=== PATIENT | female | born 1965 | race Caucasian/White ===

== ENCOUNTER 2018-01-13 07:52 | Day surgery (SDC) | payer OTHER ==
[~2018-01-13] VITALS: Ht 170.2 cm; Wt 72.7 kg
[2018-01-13] VITALS (7 sets, daily range): BP systolic 114–150; BP diastolic 67–92; PULSE 68–80; TEMP 98.1
[2018-01-13] MEDS ORDERED: IMODIUM A-D2 MG PO (08:37)
== END 2018-01-13 11:11 | disposition home or self-care (01) ==
LOC: SDCO 07:52
DX: R19.4 Change in bowel habit (principal); Z85.3 Personal history of malignant neoplasm of breast
CPT/HCPCS: J2250; J3010; J7030

== ENCOUNTER → 2018-04-20 | Outpatient (CLI) | payer OTHER ==
[~2018-04-20] MED LIST: IMODIUM A-D2 MG PO
[2018-04-20 16:17] LABS: BASO # 0.1 (0.0-0.2); BASO % 0.9 % (0.0-2.0); EOS # 0.4 (0.0-0.7); EOS % 4.3 % (0-4.0); GRAN # 6.4 (1.4-6.5); GRAN % 67.8 % (42.2-75.2); HEMATOCRIT 40.6 % (37.0-47.0); HEMOGLOBIN 13.8 g/dl (12.5-16.0); LYMPH # 1.9 (1.2-3.4); LYMPH % 20.6 % (20.0-51.0); MEAN CELL VOLUME 95 fl (80.0-100.0); MEAN CORPUSCULAR HEMOGLOBIN 32 pg (27.0-31.0); MEAN CORPUSCULAR HGB CONC 34 g/dl (33.0-37.0); MONO # 0.6 (0.1-0.6); MONO % 6.1 % (1.7-9.3); PLATELET COUNT 280 K/mm3 (130-400); RED BLOOD COUNT 4.27 M/mm3 (4.10-5.30); REDCELL DISTRIBUTION WIDTH-CV 12.8 % (11.5-14.5)
[2018-04-20 16:22] LABS: CALCIUM 9.1 mg/dL (8.4-10.2); CREATININE, serum 0.53 mg/dL (0.52-1.25); POTASSIUM 4.4 mmol/L (3.4-5.0)
== END ==
LOC: COL.LAB 10:27
PROVIDERS: Family Medicine
DX: I10 Essential (primary) hypertension (principal); R55 Syncope and collapse

== ENCOUNTER 2020-01-24 07:28 | Day surgery (SDC) | payer OTHER ==
[~2020-01-24] VITALS: Ht 170.2 cm; Wt 69.0 kg
[2020-01-24 07:50] VITALS: BP 151/99; PULSE 67; TEMP 97.8
--- NOTE | 2020-01-24 07:54 | NUR ---
CHG scrub complete on operative site.
--- NOTE | 2020-01-24 09:36 | NUR ---
Patient to the restroom at this time. Voids and returns to room.
--- NOTE | 2020-01-24 09:44 | NUR ---
Patient to the OR at this time with JACKSON Joseph.
[2020-01-24] MEDS ORDERED: NORCO 325 MG-51 TAB PO (10:33)
[2020-01-24 11:20] VITALS: BP 122/98; PULSE 66; TEMP 99.2
--- NOTE | 2020-01-24 11:20 | NUR ---
Patient arrives to [facility] [place] [address] via cart, accompanied by DIE BARBER Juliane. She is lying in bed, alert and oriented. Her right knee has an ZAK wrap bandage covering the operative site. Her right knee is elevated, Ice pack is applied. Monitoring is applied -VSS and WNL on room air. She denies pain or nausea. She is offered and receives a muffin and juice to drink. DP and PT pulses are +2 palpable. RLE color is normal and she can feel/move her leg. Call light is within reach. Will continue to monitor.
[2020-01-24 11:35] VITALS: BP 139/76; PULSE 75
--- NOTE | 2020-01-24 11:35 | NUR ---
Patient has eaten her muffin and had some juice. She is tolerating PO well. She denies pain, nausea, or need. HOB is lowered and lights dimmed for comfort.
[2020-01-24 11:50] VITALS: BP 129/77; PULSE 71
--- NOTE | 2020-01-24 11:50 | NUR ---
Patient notices some mild tingling in the right foot. Her foot is pink, warm, pulses strong. She is able to move it without difficulty. Her dressing is not tight. Will monitor.
--- NOTE | 2020-01-24 11:50 | NUR ---
VSS and WNL on room air. Denies pain or nausea.
[2020-01-24 12:05] VITALS: BP 134/73; PULSE 68
[2020-01-24 12:30] VITALS: BP 124/72; PULSE 72
--- NOTE | 2020-01-24 13:15 | NUR ---
Patient has met discharge criteria. She ambulates to the restroom with use of crutches, voids, and returns to room. PIV is removed with catheter intact and hemostasis achieved. She changes to her clothing independently. Discharge instructions are discussed. She denies any questions and verbalizes understanding. She is aware of her follow-up appointment and PT instructions. She has her paper prescription for [place] to fill at her pharmacy of choice. She is escorted to the exit via wheelchair and discharged to home with ride in private vehicle at 1315.
== END 2020-01-24 13:15 | disposition home or self-care (01) ==
LOC: SDCO 07:28
DX: M23.203 Derangement of unspecified medial meniscus due to old tear or injury, right knee (principal); M22.41 Chondromalacia patellae, right knee; M17.11 Unilateral primary osteoarthritis, right knee; Z87.891 Personal history of nicotine dependence; Z80.3 Family history of malignant neoplasm of breast
CPT/HCPCS: J0690; J1100; J1885; J2405; J2704; J3010; J7120

== ENCOUNTER → 2022-01-16 | Outpatient (CLI) | payer OTHER ==
[~2022-01-16] MED LIST changes: +NORCO 325 MG-51 TAB PO
[2022-01-16 09:19] LABS: ALBUMIN 4.3 gm/dL (3.5-5.0); BILIRUBIN,TOTAL 0.6 mg/dL (0.2-1.2); CALCIUM 9.1 mg/dL (8.4-10.2); CREATININE, serum 0.83 mg/dL (0.57-1.11); TOTAL PROTEIN 7.7 gm/dL (6.2-8.1)
== END ==
LOC: COL.LAB 08:35
DX: R19.7 Diarrhea, unspecified (principal)

== ENCOUNTER → 2022-02-12 | Outpatient (CLI) | payer OTHER ==
[2022-02-12 08:00] LABS: BASO # 0.1 K/mm3 (0.0-0.2); BASO % 0.7 % (0.0-2.0); EOS # 0.3 K/mm3 (0.0-0.7); EOS % 3.7 % (0.0-4.0); GRAN % 55.5 % (42.2-75.2); HEMOGLOBIN 13.2 g/dl (12.5-16.0); LYMPH # 2.3 K/mm3 (1.2-3.4); LYMPH % 31.3 % (20.0-51.0); MEAN CELL VOLUME 91 fl (80.0-100.0); MEAN CORPUSCULAR HEMOGLOBIN 32 pg (27-31); MEAN CORPUSCULAR HGB CONC 35 g/dl (33.0-37.0); MEAN PLATELET VOLUME 9.9 fl (7.4-10.4); MONO # 0.6 K/mm3 (0.1-0.6); MONO % 8.7 % (1.7-9.3); PLATELET COUNT 251 K/mm3 (130-400); RED BLOOD COUNT 4.18 M/mm3 (4.10-5.30); REDCELL DISTRIBUTION WIDTH-CV 12.5 % (11.5-14.5)
[2022-02-12 08:27] LABS: ALBUMIN 4.2 gm/dL (3.5-5.0); CALCIUM 9.5 mg/dL (8.4-10.2); CHOLESTEROL RISK RATIO 2.4; CREATININE, serum 0.73 mg/dL (0.57-1.11); POTASSIUM 3.9 mmol/L (3.5-4.5); TOTAL PROTEIN 7.6 gm/dL (6.2-8.1)
[2022-02-12 08:46] LABS: THYROID STIMULATING HORMONE 1.342 uIU/mL (0.350-4.940)
[2022-02-12 09:20] LABS: PH 6 (5-8); SQUAMOUS EPITHELIAL None Seen /hpf (0-10); URINE APPEARANCE Clear (CLEAR/HAZY); URINE BACTERIA None Seen /hpf (NONE SEEN); URINE BILIRUBIN Negative (NEGATIVE); URINE BLOOD 2+ (NEGATIVE); URINE COLOR Straw (YELLOW); URINE GLUCOSE Negative (NEGATIVE); URINE KETONE Negative (NEGATIVE); URINE LEUKOCYTE ESTERASE Negative (NEGATIVE); URINE NITRATE Negative (NEGATIVE); URINE PROTEIN(semi-quant) Negative (NEGATIVE); URINE UROBILINOGEN Negative (NEGATIVE); URINE WBC None Seen /hpf (0-2)
[2022-02-12 09:24] LABS: COLLECTION METHOD CLEAN CATCH
== END ==
LOC: COL.LAB 07:46
PROVIDERS: Nurse Practitioner Family
DX: Z00.00 Encounter for general adult medical examination without abnormal findings (principal)

== ENCOUNTER → 2022-04-15 | Outpatient (CLI) | payer OTHER ==
[2022-04-15 09:39] LABS: URINE APPEARANCE Clear (CLEAR/HAZY); URINE COLOR Yellow (YELLOW)
[2022-04-15 09:40] LABS: PH 5 (5-8); URINE BLOOD 2+ (NEGATIVE); URINE GLUCOSE Negative (NEGATIVE); URINE KETONE Negative (NEGATIVE); URINE NITRATE Negative (NEGATIVE); URINE PROTEIN(semi-quant) Negative (NEGATIVE); URINE UROBILINOGEN Negative (NEGATIVE)
[2022-04-15 09:41] LABS: MUCOUS Present (NOT PRESENT); SQUAMOUS EPITHELIAL None Seen /hpf (0-10); URINE BACTERIA None Seen /hpf (NONE SEEN); URINE RBC None Seen /hpf (0-2)
[2022-04-15 09:42] LABS: COLLECTION METHOD CLEAN CATCH
== END ==
LOC: COL.LAB 09:07
PROVIDERS: Nurse Practitioner Family
DX: R31.9 Hematuria, unspecified (principal)

== ENCOUNTER 2023-01-18 17:04 | Emergency (ER) | payer OTHER ==
[~2023-01-18] VITALS: Ht 170.2 cm; Wt 72.7 kg
[2023-01-18 17:05] VITALS: TEMP 97.7
[2023-01-18 17:16] LABS: BASO # 0.1 K/mm3 (0.0-0.2); BASO % 0.5 % (0.0-2.0); EOS # 0.4 K/mm3 (0.0-0.7); EOS % 3.1 % (0.0-4.0); GRAN # 7.3 K/mm3 (1.4-6.5); GRAN % 61.9 % (42.2-75.2); HEMATOCRIT 40.2 % (37.0-47.0); LYMPH # 3.2 K/mm3 (1.2-3.4); LYMPH % 27.1 % (20.0-51.0); MEAN CELL VOLUME 90 fl (80.0-100.0); MEAN CORPUSCULAR HEMOGLOBIN 31 pg (27-31); MEAN CORPUSCULAR HGB CONC 35 g/dl (33.0-37.0); MEAN PLATELET VOLUME 9.6 fl (7.4-10.4); MONO # 0.8 K/mm3 (0.1-0.6); MONO % 7.1 % (1.7-9.3); PLATELET COUNT 279 K/mm3 (130-400); RED BLOOD COUNT 4.46 M/mm3 (4.10-5.30)
[2023-01-18 17:34] LABS: ALANINE AMINOTRANSFERASE 15 U/L (0-55); ALBUMIN 4.6 gm/dL (3.5-5.0); ALKALINE PHOSPHATASE 80 U/L (40-150); ANION GAP 13 mmol/L (7-16); AST,SGOT 14 U/L (5-34); BILIRUBIN,TOTAL 0.8 mg/dL (0.2-1.2); BLOOD UREA NITROGEN 19 mg/dL (10-20); CARBON DIOXIDE 20 mmol/L (22-29); CHLORIDE 99 mmol/L (98-107); CREATININE, serum 0.77 mg/dL (0.57-1.11); GLUCOSE 92 mg/dL (70-99); POTASSIUM 3.7 mmol/L (3.5-4.5); SODIUM 132 mmol/L (136-145); TOTAL PROTEIN 7.9 gm/dL (6.2-8.1)
[2023-01-18 17:44] LABS: TROPONIN-I < 0.010 ng/mL (0.00-0.033)
[2023-01-18 18:35] VITALS: BP 138/85; PULSE 77
== END 2023-01-18 18:41 | disposition home or self-care (01) ==
LOC: COL.ER 17:04
PROVIDERS: Physician Assistant
DX: I16.0 Hypertensive urgency (principal); R68.84 Jaw pain; Z87.891 Personal history of nicotine dependence; Z28.310 Unvaccinated for COVID-19
CPT/HCPCS: J2060; J7030

== ENCOUNTER → 2023-08-08 | Outpatient (CLI) | payer OTHER ==
[2023-08-08 09:44] LABS: BASO # 0.1 K/mm3 (0.0-0.2); BASO % 0.6 % (0.0-2.0); EOS # 0.2 K/mm3 (0.0-0.7); EOS % 2.7 % (0.0-4.0); GRAN # 5.3 K/mm3 (1.4-6.5); GRAN % 67.5 % (42.2-75.2); HEMATOCRIT 40.7 % (37.0-47.0); HEMOGLOBIN 14.3 g/dl (12.5-16.0); LYMPH # 1.8 K/mm3 (1.2-3.4); LYMPH % 22.8 % (20.0-51.0); MEAN CELL VOLUME 92 fl (80.0-100.0); MEAN CORPUSCULAR HEMOGLOBIN 32 pg (27-31); MEAN CORPUSCULAR HGB CONC 35 g/dl (33.0-37.0); MEAN PLATELET VOLUME 9.7 fl (7.4-10.4); MONO # 0.5 K/mm3 (0.1-0.6); MONO % 6.3 % (1.7-9.3); PLATELET COUNT 240 K/mm3 (130-400); RED BLOOD COUNT 4.41 M/mm3 (4.10-5.30); REDCELL DISTRIBUTION WIDTH-CV 11.8 % (11.5-14.5)
== END ==
LOC: COL.LAB 09:22
PROVIDERS: Nurse Practitioner Family
DX: D72.828 Other elevated white blood cell count (principal)

== ENCOUNTER 2023-10-10 15:10 | Emergency (ER) | payer OTHER ==
[~2023-10-10] VITALS: Ht 170.2 cm; Wt 70.5 kg
[2023-10-10 15:17] VITALS: TEMP 98.3
[2023-10-10] MEDS ORDERED: Ketorolac 15 MG/ML VIAL IV ONE (15:45)
[2023-10-10] MEDS ORDERED: NS 1,000 ML IV ONE (15:45)
[2023-10-10 15:49] LABS: BASO # 0.1 K/mm3 (0.0-0.2); BASO % 0.7 % (0.0-2.0); EOS # 0.2 K/mm3 (0.0-0.7); EOS % 2.8 % (0.0-4.0); GRAN # 4.9 K/mm3 (1.4-6.5); GRAN % 56.1 % (42.2-75.2); HEMATOCRIT 41.1 % (37.0-47.0); HEMOGLOBIN 14.1 g/dl (12.5-16.0); LYMPH # 2.9 K/mm3 (1.2-3.4); MEAN CELL VOLUME 92 fl (80.0-100.0); MEAN CORPUSCULAR HEMOGLOBIN 32 pg (27-31); MEAN CORPUSCULAR HGB CONC 34 g/dl (33.0-37.0); MEAN PLATELET VOLUME 10.1 fl (7.4-10.4); MONO # 0.6 K/mm3 (0.1-0.6); MONO % 7.2 % (1.7-9.3); PLATELET COUNT 304 K/mm3 (130-400); RED BLOOD COUNT 4.48 M/mm3 (4.10-5.30)
[2023-10-10 16:00] LABS: ALANINE AMINOTRANSFERASE 12 U/L (0-55); ALBUMIN 4.6 gm/dL (3.5-5.0); ALKALINE PHOSPHATASE 68 U/L (40-150); ANION GAP 11 mmol/L (7-16); AST,SGOT 14 U/L (5-34); BILIRUBIN,TOTAL 0.5 mg/dL (0.2-1.2); BLOOD UREA NITROGEN 12 mg/dL (10-20); CALCIUM 10.1 mg/dL (8.4-10.2); CARBON DIOXIDE 25 mmol/L (22-29); CHLORIDE 102 mmol/L (98-107); CREATININE, serum 0.75 mg/dL (0.57-1.11); GLUCOSE 96 mg/dL (70-99); POTASSIUM 3.9 mmol/L (3.5-4.5); SODIUM 138 mmol/L (136-145)
[2023-10-10 16:18] LABS: TROPONIN-I < 0.010 ng/mL (0.00-0.033)
[2023-10-10 17:01] VITALS: BP 130/87; PULSE 67
== END 2023-10-10 17:36 | disposition home or self-care (01) ==
LOC: COL.ER 15:10
PROVIDERS: Emergency Medicine
DX: R07.89 Other chest pain (principal); G93.39 Other post infection and related fatigue syndromes; U09.9 Post COVID-19 condition, unspecified
CPT/HCPCS: J1885; J7030